=== PATIENT | female | born 1985 | race American Indian/Alaskan Native ===

== ENCOUNTER 2018-07-27 11:03 | Outpatient (CLI) | payer OTHER | END 2018-07-27 12:31 | disposition home or self-care (01) | LOC: NST 11:03 | DX: Z34.83 Encounter for supervision of other normal pregnancy, third trimester (principal) ==

== ENCOUNTER 2018-08-10 09:10 | Outpatient (CLI) | payer OTHER | END 2018-08-10 10:13 | disposition home or self-care (01) | LOC: NST 09:10 | DX: Z34.83 Encounter for supervision of other normal pregnancy, third trimester (principal) ==